=== PATIENT | male | born 1930 | race Caucasian/White ===

== ENCOUNTER 2018-09-11 09:27 | Day surgery (SDC) | payer OTHER ==
[~2018-09-11] VITALS: Ht 180.3 cm; Wt 73.6 kg
[~2018-09-11 09:27] MED LIST: ACET500 PO; ASPI81CH PO; MULTI VITAMIN1 EACH PO; NAPR500 PO; OMEP20ER PO; OXYACE5T PO; Omeprazole20 M1 PO; RXOXYACE PO
[2018-09-11] MEDS ORDERED: IBUP400 PO (10:14)
--- NOTE | 2018-09-11 10:24 | NUR ---
09/11/18 Lexii Bach V PT RESTING IN BED, SIDE RAILS IN PLACE, CALL LIGHT WITHIN REACH, PT TEACHING COMPLETED. PT DENIES DISCOMFORT AND QUESTIONS AT THIS TIME.
--- NOTE | 2018-09-11 12:05 | NUR ---
09/11/18 1205 Melissa Schroeder CAP REFIL TO ALL TOES ON RIGHT FOOT
--- NOTE | 2018-09-11 13:14 | NUR ---
09/11/18 1314 Kat Nguyen LATE ENTRY TOOK REPORT FROM [facility].VLC, PT RESTING IN RECLINER EATING AND DRINKING PO NOURISHMENT. DENIES PAIN/NAUSEA AT THIS TIME, FRIENDS AND FAMILY AT CHAIRSIDE. VSS. PT WANTED TO KNOW HOW SOON HE COULD LEAVE. PT STABLE, DISCUSSED DC INSTRUCTIONS, QUESTIONS ANSWERED. PT TO RESTROOM AND THEN WC TO CAR.
== END 2018-09-11 13:02 | disposition home or self-care (01) ==
LOC: ORSCSDS 09:27
PROVIDERS: Podiatrist Foot & Ankle Surgery
PROC: 0SCF0ZZ Extirpation of Matter from Right Ankle Joint, Open Approach (ICD-10-PCS; principal; 2018-09-11 11:45)
DX: M25.571 Pain in right ankle and joints of right foot (principal); M19.071 Primary osteoarthritis, right ankle and foot; M77.9 Enthesopathy, unspecified; E78.5 Hyperlipidemia, unspecified; Z79.82 Long term (current) use of aspirin; Z87.891 Personal history of nicotine dependence
CPT/HCPCS: 88300; J0690; J3010; J7120

== ENCOUNTER 2018-11-15 00:01 | Emergency (ER) | payer MEDICARE ==
[~2018-11-15] VITALS: Ht 180.3 cm; Wt 72.6 kg
[~2018-11-15 00:01] MED LIST changes: +IBUP400 PO
[2018-11-15 00:29] LABS: BASOPHILS ABSOLUTE AUTO 0.04 K/mm3 (0.00-0.23); BASOPHILS PERCENT AUTO 1 % (0-2); EOSINOPHILS ABSOLUTE AUTO 0.48 K/mm3 (0.00-0.68); EOSINOPHILS PERCENT AUTO 8 % (0-6); Hematocrit 41.3 % (37.0-53.0); Hemoglobin 13.9 g/dL (13.5-17.5); IMMATURE GRAN ABSOLUTE AUTO 0.02 K/mm3 (0.00-0.10); IMMATURE GRAN PERCENT AUTO 0 % (0-1); LYMPHOCYTES ABSOLUTE AUTO 1.29 K/mm3 (0.84-5.20); LYMPHOCYTES PERCENT AUTO 22 % (21-46); MONOCYTES PERCENT AUTO 10 % (4-13); Mean Corpuscular HGB 34.4 pg (26.0-34.0); Mean Corpuscular HGB Conc 33.7 g/dL (31.5-36.5); Mean Corpuscular Volume 102 fL (80-100); Mean Platelet Volume 8.4 fL (9.1-12.4); NEUTROPHILS ABSOLUTE AUTO 3.36 K/mm3 (1.96-9.15); NEUTROPHILS PERCENT AUTO 58 % (41-73); Platelet Count 205 K/mm3 (150-400); RDW Coefficient Variation 13.4 % (11.7-14.2); Red Blood Cell Count 4.04 M/mm3 (4.30-5.90); White Blood Cell Count 5.79 K/mm3 (4.00-11.30)
[2018-11-15 00:49] LABS: Alanine Aminotransfer (ALT/SGP 20 U/L (12-78); Albumin, Blood 3.5 g/dL (3.4-5.0); Albumin/Globulin Ratio 0.9 (0.8-1.8); Alk Phos 185 U/L (50-136); Anion Gap 8 mmol/L (6-16); Aspartate Aminotrans (AST/SGOT 33 U/L (12-37); Bilirubin, Total 0.5 mg/dL (0.1-1.0); Blood Urea Nitrogen 14 mg/dL (8-24); Bun/Creatinine Ratio 11.7 (12.0-20.0); CO2, Blood 27 mmol/L (21-32); Calcium, Blood 8.6 mg/dL (8.5-10.1); Chloride, Blood 101 mmol/L (98-108); Globulin, Blood 3.8 g/dL (2.2-4.0); Glomerular Filtration Rate >60 (60-); Glucose, Blood 71 mg/dL (70-99); Potassium, Blood 3.8 mmol/L (3.5-5.5); Sodium, Blood 136 mmol/L (136-145); Total Protein, Blood 7.3 g/dL (6.4-8.2); Troponin I <0.015 ng/mL (0.000-0.040)
== END 2018-11-15 04:45 | disposition home or self-care (01) ==
LOC: ER 00:01
PROVIDERS: Emergency Medicine
DX: R07.89 Other chest pain (principal); Z79.899 Other long term (current) drug therapy; K21.9 Gastro-esophageal reflux disease without esophagitis; Z87.891 Personal history of nicotine dependence
CPT/HCPCS: 36415; 71046; 71260; 80053; 84484; 85025; 85379; 93005; 93010; Q9967